=== PATIENT | male | born 1975 | race Caucasian/White ===

== ENCOUNTER 2024-08-19 00:08 | Emergency (ER) | payer OTHER, SELFPAY ==
[2024-08-19] VITALS (79 sets, daily range): BP systolic 33–224; BP diastolic 18–138; PULSE 0–169; RESP 0–64; TEMP 36.7; O2SAT 23–100
--- NOTE | ~2024-08-19 | XR_ITS ---
XR chest 1V portable Ordering provider: Kaitlynn Long MD History: 49 years Male with . cough . Comparison: April 05, 2011 FINDINGS: MEDIASTINUM: The cardiac silhouette is not enlarged. LUNGS: No effusions or pneumothorax. Prominent bronchovascular markings in the left lung base mediall y which may indicate atelectasis versus early pneumonia. Bilateral interstitial thickening suggestive of pneumonitis versus underlying fibrotic changes. OTHER: No free air under the diaphragm. IMPRESSION: Left basilar atelectasis versus pneumonia. Bilateral interstitial thickening suggestive of pneumoniti s. Pulmonary edema is less likely. Clinical correlation advised Reviewed, dictated and finalized at location A. IMPRESSION: Left basilar atelectasis versus pneumonia. Bilateral interstitial thickening hamilton ggestive of pneumonitis. Pulmonary edema is less likely. Clinical correlation a dvised
--- NOTE | ~2024-08-19 | XR_ITS ---
XR chest ET placement Ordering provider: Kaitlynn Long MD History: 49 years Male with . ET TUBE ADJUSTMENT . Comparison: August 19, 2024 FINDINGS: MEDIASTINUM: The cardiac silhouette is not enlarged. Endotracheal tube is seen about 7 cm above the c carmen. Nasogastric tube unchanged. LUNGS: No pneumothorax. Bilateral airspace disease seen more prominent in the lower lobes. Possibilit y of minimal effusion the left costophrenic angle is not excluded. OTHER: No free air under the diaphragm. IMPRESSION: Bilateral airspace disease suggestive of pneumonia and less likely pulmonary edema. Follow-up to reso lution advised. Reviewed, dictated and finalized at location A. IMPRESSION: Bilateral airspace disease suggestive of pneumonia and less likely pulmonary ed jenny. Follow-up to resolution advised.
--- NOTE | ~2024-08-19 | XR_ITS ---
XR chest ET placement Ordering provider: Kaitlynn Long MD History: 49 years Male with . ET TUBE PLACEMENT . Comparison: 08/19/2024 FINDINGS: MEDIASTINUM: The cardiac silhouette is slightly enlarged. Endotracheal tube is about 4 cm above the c carmen. Nasogastric tube is seen with the tip in the stomach. LUNGS: No pneumothorax. Bilateral airspace disease is seen suggestive of pulmonary edema versus pneum onia. OTHER: No free air under the diaphragm. IMPRESSION: Bilateral airspace disease suggestive of pneumonia versus pulmonary edema. Slight cardiomegaly. Reviewed, dictated and finalized at location A.
--- NOTE | ~2024-08-19 | CT_ITS ---
CT brain wo con Ordering provider: Kaitlynn Long History: 49 years Male with . unresponsiveness now resolved . Comparison: None. Technique: CT of the head without contrast. Radiation reduction technique utilized.The dose-length product was 1513.33 mGy-cm. FINDINGS: BRAIN PARENCHYMA AND CSF SPACES: No midline shift, mass effect or hemorrhage. The brain parenchyma a nd CSF spaces are otherwise normal. Paul Cisterna magnum. VISUALIZED PARANASAL SINUSES: Well aerated. MASTOIDS: Well aerated. BONES: The bones appear intact. SOFT TISSUES: Visualized nasopharynx is normal. Superficial soft tissues are normal. IMPRESSION: No acute intracranial findings. Reviewed, dictated and finalized at location A.
--- NOTE | ~2024-08-19 | XR_ITS ---
XR abdomen gastric tube insert Ordering provider: Kaitlynn Long MD History: . OG INSERT . Comparison: None. FINDINGS: BOWEL: Enteric tube is seen with the tip in the fundus of the stomach. Gas filled small bowel loops a re noted with slight dilatation. Obstruction versus ileus cannot be excluded. Follow-up advised. ORGANOMEGALY: None. SIGNIFICANT PATHOLOGIC CALCIFICATIONS: None. OTHER: No free air is seen under the diaphragm. IMPRESSION: Slightly dilated small bowel loops. Obstruction versus ileus cannot be excluded. Follow-up advised. Reviewed, dictated and finalized at location A. IMPRESSION: Slightly dilated small bowel loops. Obstruction versus ileus cannot be excluded . Follow-up advised.
--- NOTE | ~2024-08-19 | CT_ITS ---
CTA chest abdomen pelvis Ordering provider: Kaitlynn Long MD History: . period unresponsiveness . Comparison: None. Technique: CT angiogram chest, abdomen and pelvis was performed following timed intravenous injection of contrast. Thin slice axial images and reformatted coronal images were obtained. Three dimensional reformatted images of the chest were also obtained using a [employer] workstation. Radiation reduction t echnique utilized.The dose-length product was 1116.93 mGy-cm. 100 mL Omnipaque 350 was given IV. FINDINGS: CHEST: --THORACIC AORTA: normal . No aneurysm, dissection or mediastinal hematoma. Ascending aorta measures 3.6 cm. --GREAT VESSELS: Normal as visualized. --PULMONARY ARTERIES: No pulmonary embolus. --VISUALIZED THORACIC INLET: Normal. --MEDIASTINUM: Coronary arteries: Normal. Heart/other: The heart is not enlarged. Lymph nodes: No mediastinal or hilar adenopathy. Mildly prominent mediastinal and hilar lymph nodes. --LUNGS: No pulmonary nodules or masses. No pneumothorax. Interlobar septal thickening suggestive of fluid. Ex tensive patchy groundglass opacities suggestive of pulmonary edema versus pneumonia. Trace of right p leural effusion is possible. Thickening of the wall of the esophagus which. Slight thickening of the tracheal wall. --MUSCULOSKELETAL: Superficial soft tissues: The superficial soft tissues are normal. Bones: Age appropriate degenerative changes of the spine. ABDOMEN/PELVIS: --MUSCULOSKELETAL: Bones: Age appropriate degenerative changes of the spine. Superficial soft tissues: Bilateral Small inguinal fat containing hernia. Otherwise, The superficial soft tissues are normal. --UPPER ABDOMINAL ORGANS: Liver: Fat infiltration. Gallbladder: Normal. Spleen: Normal. Stomach/duodenum: Normal. Pancreas: Normal. Adrenals: Normal. Kidneys: Tiny cyst in the left kidney upper pole with calcification. --PELVIC ORGANS: . No bladder stones. Enlarged prostate. [place]idad catheter is seen in the urinary bladd er. Underdistended urinary bladder. Thickened wall of the urinary bladder is seen suggestive of cysti tis versus infiltrative process. Air seen in the urinary bladder most likely post catheterization. --BOWEL AND MESENTERY: Colon: No evidence of diverticulitis. Slightly prominent wall of the colon which may indicate colitis . Normal appendix. Small Bowel: Normal. No obstruction. Peritoneum/mesentery: No free air or free fluid. No mesenteric lymphadenopathy. --RETROPERITONEUM: No retroperitoneal lymphadenopathy. --ARTERIES: ABDOMINAL AORTA: Mild atheromatous disease. No aneurysm or dissection. RENAL ARTERIES: Mild atherosclerotic changes no significant stenosis. CELIAC AXIS: Normal. SMA: Normal. ARABELLA: Normal. ILIAC AND VISUALIZED FEMORAL ARTERIES: Normal. MESENTERIC ARTERIES: Normal. IMPRESSION: CHEST: 1. Bilateral pneumonia versus pulmonary edema. Atypical or viral pneumonia should be considered. 2. No evidence of aneurysm or dissection. No pulmonary embolism. ABDOMEN/PELVIS: 1. No evidence of aneurysm or dissection. 2. Slightly thickened wall of the colon which may indicate colitis. 3. Underfilled urinary bladder with thickened wall. Further evaluation advised. 4. Fat infiltration of the liver. Reviewed, dictated and finalized at location A. IMPRESSION: CHEST: 1. Bilateral pneumonia versus pulmonary edema. Atypical or viral pneumonia althea uld be considered. 2. No evidence of aneurysm or dissection. No pulmonary embolism. ABDOMEN/PELVIS: 1. No evidence of aneurysm or dissection. 2. Slightly thickened wall of the colon which may indicate colitis. 3. Underfilled urinary bladder with thickened wall. Further evaluation advised . 4. Fat infiltration of the liver.
--- NOTE | ~2024-08-19 | CT_ITS ---
CT cervical spine wo con Ordering provider: Kaitlynn Long MD History: . unresponsiveness now resolved . Comparison: None. Technique: CT of the cervical spine was performed without contrast. Sagittal and coronal reformatted images were also obtained and reviewed. Automated exposure control and iterative reconstruction grace hnique were employed. The dose-length product was 369.59 mGy-cm. 08/19/2024 FINDINGS: VERTEBRAE: No subluxation or acute fracture. The occipital condyles are intact. DISC SPACES: Narrowing of the disc C4-C5, C5-C6, and C6-C7. Multilevel facet joint disease. Multileve l uncovertebral joint osteoarthritic changes. Multilevel intervertebral foraminal narrowing. MRI is b andre for evaluation. PARASPINOUS SOFT TISSUES: Straightening of the spine suggestive of muscle spasm. Small erosive area s een in the ligamentum nuchae. IMPRESSION: No acute osseous abnormality cervical spine. Multilevel degenerative disc disease. Reviewed, dictated and finalized at location A.
--- NOTE | 2024-08-19 00:19 | ECG_ITS ---
Test Date: 2024-08-19 00:21:45 Measurements Intervals [place] Rate: 91 P: 34 PA: 164 QRS: 34 QRSD: 119 T: 101 QT: 400 QTc: 493 Interpretive Statements SINUS RHYTHM INCOMPLETE RIGHT BUNDLE BRANCH BLOCK ST DEVIATION AND T-WAVE ABNORMALITY, CONSIDER ISCHEMIA Electronically Signed On 08-19-2024 14:00:12 CDT by Tucker Lew D.O
--- NOTE | 2024-08-19 00:21 | ED.AMS ---
HPI - Altered Mental Status General Chief Complaint: Altered Mental Status Stated Complaint: period of unresponsiveness Time Seen by Provider: 08/19/24 00:15 Source: patient, family ( and son) and EMS Mode of arrival: EMS Limitations: no limitations History of Present Illness HPI narrative: Patient presents after report an episode the period of unresponsiveness. Son notes that he heard a gurgling sound and patient was found to be lying on the couch, appeared to be gasping for air with his eyes rolled back. Initially states that he fell as they moved him to the ground but they then clarifies that he did not fall but rather he slid as the eased him to the ground. He had been incontinent of bowel and bladder. Some denies any obvious seizure-like activity although he does state that his bilateral arms appeared slightly straightened and tense. EMS verbal reported Kussmaul respirations initially and that he was unresponsive however he did regain consciousness during transport and was alert oriented x4 at that time and that he said he drank 3 beers and a shot of fireball. Point care glucose 451 mg/dL. Vomited x1. Patient does report that he drinks too much. It is also reported that he has prediabetes. He states he has no complaints. He denies any chest pain, palpitations, headache, or any injury. He denies any edema. They do note that he has had a cough tonight. When pressed, he does state he feels short of breath and nauseated. He denies any recreational drugs, history of seizure, or history of heart failure. Related Data Allergies Allergy/AdvReac Type Severity Reaction Status Date / Time amoxicillin (From Augmentin) Allergy Unknown Unknown Verified 08/19/24 00:20 clavulanic acid (From Allergy Unknown Unknown Verified 08/19/24 00:20 Augmentin) Penicillins Allergy Unknown Unknown Verified 08/19/24 00:20 PMFSH Past Medical History Medical History Prediabetes Social History Social History Alcohol intake: current Alcohol use details: moderate/heavy Exam Narrative: GENERAL: well-nourished, and in no acute distress. HEAD: Normocephalic, atraumatic. EYES: Non injected, non icteric ENT: Nares clear, no rhinorrhea or epistaxis. NECK: Supple. CHEST: Speaking in full sentences. No respiratory distress. HEART: Regular rate and rhythm. . ABDOMEN: Soft, nondistended. EXTREMITIES: Normal range of motion. No lower extremity edema. SKIN: Warm, dry, no rash. Mild facial redness. NEURO: No focal deficits. Alert and oriented x3. Speaks clearly; mild slurring but easily understandable. Answering questions approrpiately and following commands. PSYCH: Normal mood and affect. Course Vital Signs Vital signs: Vital Signs Temperature 98.1 F 08/19/24 00:17 Pulse Rate 92 08/19/24 00:17 Respiratory Rate 22 H 08/19/24 00:17 Blood Pressure 86/70 L 08/19/24 00:17 Pulse Oximetry 84 L 08/19/24 00:17 Oxygen Delivery Room Air 08/19/24 00:17 Temperature 98.1 F 08/19/24 00:17 Pulse Rate 0 L 08/19/24 05:42 Respiratory Rate 26 H 08/19/24 05:42 Blood Pressure 51/20 L 08/19/24 05:42 Pulse Oximetry 23 L 08/19/24 05:38 Oxygen Delivery Mechanical Ventilation 08/19/24 03:00 Oxygen Flow Rate 15 08/19/24 01:04 Fraction of Inspired Oxygen 100 08/19/24 03:00 Procedures Intubation Intubation #1: Intubation Date: 08/19/24 Time out performed: Yes sedative: Etomidate Mg Given: 20 paralytic: Rocuronium Mg Given: 70 Laryngoscope: other (Linda 4, Linda 3, Ponce , and glide scope each used) Assist Device Used: fiber optic device Tube Size (cm): 7.5 Method of Intubation: orotracheal Number of Attempts: 4 Tube Placement Confirmation: visualized tube passing through cords, equal breath sounds bilaterally and confirmation by capnometry Additional Comments: Patient had voluminous secretions. Hypoxic throughout. Laryngoscopy at times performed while chest compressions being performed. His epiglottis appeared edematous and flat/floppy. Initially intubated using Mac and good capnography but difficult to appreciate breath sounds bilaterally and profused gastric secretions out of ETT concerning for possible esophageal placement so withdrawn and assisted with BVM ventilations. Attempted again using Ponce with same result -tube placed in color change on colorimetric device but with profuse gastric contents concerning for improper placement. Glidescope used for next attempt. Tube passed through vocal cords upon video screen. Good colorimetric response. Continues to have gastric contents but this is presumably from significant aspiration. SpO2 improving MDM - Altered Mental Status MDM Narrative Medical decision making narrative: Patient presents with report of a period of unresponsiveness during which he lost control of bowel and bladder. EMS note that he was initially unresponsive and with Kussmaul breathing. Blood glucose greater than 400 mg/dL. He did return to baseline mentation during transportation was able to give some history to EMS personnel which included alcohol consumption this evening. In the emergency department he is afebrile vital signs notable for hypotension, tachypnea, and with hypoxia although difficult to obtain waveform initially given cool/cold extremities. Placed on nasal cannula. Patient receiving 1L IV fluids initiated by EMS. Will hold on full 30cc/kg bolus as obtain more information. However, given flags for sepsis, will give broad spectrum antibiotics. Called to bedside just before 01:00. Patient's reports that he stated that he was not feeling well and that his vision was going. He started to vomit and subsequently was noted to hayder down to the 30s. He remained hypotensive. Patient assisted with ventilations via BVM. Narcan administered though pupils dilated; and POC glucose in the 300s. Patient's heart rate then improved to the 70s and 80s. Initial blood pressure obtained just thereafter shows a narrow pulse pressure. When it is retaken he has no hypertensive 202/108. Pupils remain bilaterally dilated and sluggishly responsive. Repeat EKG-show elevation AVR and upon reviewing initial EKG this also had shown elevation AVR. However, EKG obtained at 1:00 a[address] also shows diffuse ST depressions particularly in precordial leads V3 through V6. Posterior EKG is ordered and performed. Discussed patient with carry all driver Dr. Lew at approximately 01:15 and discussed extensively. He believes that patient might have multivessel disease with possible cardiomyopathy he given history however this not believe that this needs to be activated as a STEMI or STEMI equivalent. Posterior EKG is also reassuring. His SpO2 is stable, 99%. Patient has a lactic acid greater than 7. Questionable seizure versus infection/inflammation or other etiology. Troponin mildly elevated at 0.036. He had denied any chest pain. Potassium and magnesium are within normal limits. Ethanol 151. Elevated AST and ALT with no prior for comparison. He is hyperglycemic with an anion gap but no yrn acidosis on CMP. Beta hydroxybutyrate only mildly elevated. Pseudo hyponatremia as it corrects to 139-141 in the setting of hyperglycemia. TSH abnormal, T3 and T4 ordered. Glucosuria and proteinuria on urinalysis but no ketonuria. Patient's hemoglobin A1c is greater than 9% thus he does have diabetes and this is a new diagnosis. Trinidad inserted and temp sensing Trinidad placed. Patient was being transported back from CT scan when he went unresponsive. Immediately went to room and patient found to be pulseless at 02:18. CPR and ACLS initiated. See nursing documentation for exact times of interventions and medications administered. Intubated for airway protection and hypoxia as above. Placed on ventilator with FiO2 100%, TV 500, PEEP 5 initially. Patient's and son at bedside throughout code and resuscitation. A few episodes of ROSC but then with loss of pulses again at different intervals. Patient's requesting termination of compressions. At that pulse check, however, patient has regained a pulse. Saturations improved though tenuous. BP also initially elevated, 200s/100s with HR 150s-160s in the immediate post intubation period. Assisted extensively during and after resuscitation by hospitalist Dr Moore who has been able to review the resultant CT images in the interim.. Spoke with Stat Rad, particularly Devante Christina MD regarding the interpretation of CT head which was read is generally unremarkable. Did comment that patient has a degree of atrophy but not beyond the range of normal. She did note that he may have metacistern magna which can be a normal variant. She commented that the findings at the most superior aspect where there is hyperdensity are normal dural venous sinus findings. In regards to the questionably cystic structure seen most particularly on sagittal imaging. She notes that this likely represents partial volume averaging artifact. We did also discuss the findings on CT chest. Given patient will require MRI and particular a mechanical ventilator compliant MRI, will be unable to stay at [facility] and will require transfer. Patient's notes that he has not received care through any other hospital system previously. Admitted under physician Joseph Wilkes after discussing at 03:42 - 3:52 at [facility]. ICU bed pending, told possibly not until after 7am. Spoke with health screener Dr Anguiano at [facility] at approximately 04:45 who accepted patient. ICU. Pending bed. Thiamine ordered. Multiple and frequent reassessments of patient. Patient's hemodynamics have been tenuous with blood pressure initially elevated than normal and then becoming hypotensive again. Another 1L IV fluids administered (2nd in ED with 3rd total). Difficulties with maintaining oxygenation requiring a push dose of rocuronium and Versed for patient manipulation and venitlator management by Dr Moore who also places arterial line (see separate documentation). Peripheral pressors as Norepi initiated as per protocol but up titrated to 30. 2nd pressor ordered and then third. Dr Moore places Central line (see seprarate documentation). Called to bedside at 5:43 as patient was noted to go asystole on the monitor at 5:42. confirms she does not want compressions performed or any further invasive efforts. Pupils fixed and dilated. The mechanical ventilator turned off and patient has no spontaneous respirations or cardiac sounds on auscultation. Point of care ultrasound is performed and there is cardiac standstill. Patient pronounced at 5:46 a.m. and son present. PCP listed as below but Dr nAgulo had prescribed medications recently; the latter appears to be a primary care physician/family medicine doctor but was unable to confirm if this is patient's PCP before patient's left. [employer] called and arrived. Discussed case with them. ==== Critical Care: 1 or more vital organ systems impaired with a high probability of imminent or life-threatening deterioration in the patient's condition requiring frequent personal assessment and manipulation of the patient's condition. This included time spent evaluating the patient, speaking with EMS pre-hospital personnel and family, reviewing/interpreting laboratory/imaging studies, discussing the case with consultants or admitting teams, retrieving data and reviewing charts, monitoring for decompensation, documenting the visit, and performing bundled procedures exclusive of separately billed procedures. Differential Diagnosis Differential diagnosis: Likely alcoholic intoxication, altered mental status, delirium, hypoglycemia, hyponatremia, subarachnoid hemorrhage, sepsis and other (Seizure, infection (pneumonia, urinary tract infection); thyroid abnormalities; drug-induced) Lab Data Attestation: I reviewed the patient's lab results. Lab results narrative: Urine drug screen negative 08/19/24 00:34 08/19/24 00:34 Labs: Lab Results 08/19/24 08/19/24 08/19/24 Range/Units 00:34 00:58 01:25 WBC 8.0 (4.5-10.0) K/mm3 RBC 4.51 L (4.6-6.20) M/mm3 Hgb 14.6 (14.0-18.0) g/dL Hct 40.1 L (42.0-52.0) % MCV 88.9 (80-100) fl MCH 32.4 (26-34) pg MCHC 36.4 H (32-36) g/dl RDW 11.4 L (11.5-14.5) % Plt Count 222 (150-375) k/mm3 MPV 10.3 (7.4-10.4) fl Immature Gran % (Auto) 0.6 H (0-0.5) % Neut % (Auto) 55.2 (45.5-73.1) % Lymph % (Auto) 36.3 (18.3-44.2) % [place] % (Auto) 6.1 (2.6-8.5) % Eos % (Auto) 1.4 (0-4.4) % Baso % (Auto) 0.4 (0.2-1.2) % Lymph # (Auto) 2.90 (0.9-3.2) K/mm3 [place] # (Auto) 0.5 (0.1-0.6) K/mm3 Eos # (Auto) 0.1 (0-0.3) K/mm3 Baso # (Auto) 0.0 (0.0-0.1) K/mm3 Abs Immat Gran (auto) 0.05 H (0.00-0.031) K/mm3 Absolute Neuts (auto) 4.4 (1.3-6.7) K/mm3 Absolute Nucleated RBC 0.000 (0.0-0.012) K/mm3 Nucleated RBC % 0.0 (0.0-0.2) % PT 13.7 (11.1-14.7) Seconds INR 1.0 APTT 31.0 (22.3-36.8) Seconds Methemoglobin (0-1.5) %THb Minute Volume Vent Mode Tidal Volume ml PEEP cmH2O Peak Inspir Pressure Pressure Support Sodium 135 L (137-145) mmol/L Potassium 3.7 (3.4-5.0) mmol/L Chloride 94 L (98-107) mmol/L Carbon Dioxide 18 L (22-30) mmol/L Anion Gap 23 H (4-12) mmol/L BUN 28 H (9-20) mg/dL Creatinine 1.24 (0.7-1.3) mg/dL Estim Creat Clear Calc 66 ml/min Estimated GFR > 60 (59 - ) Glucose 353 H (65-110) mg/dL POC Capillary Glucose 317 H (65-105) mg/dl Hemoglobin A1c (<5.7) % Lactic Acid 7.1 H* (0.7-2.0) mmol/L Calcium 9.3 (8.4-10.2) mg/dL Phosphorus 6.5 H (2.5-4.5) mg/dL Magnesium 2.0 (1.6-2.3) mg/dL Total Bilirubin 0.8 (0.2-1.3) mg/dL AST 98 H (17-59) U/L ALT 124 H (6-50) U/L Alkaline Phosphatase 104 (38-126) U/L Ammonia < 9 L (9-30) umol/L Total Creatine Kinase 63 (55-170) U/L Troponin I 0.036 H* (0.000-0.034) ng/mL NT-Pro-B Natriuret Pep 378 H (19.9-100) pg/mL Total Protein 7.0 (6.3-8.2) g/dL Albumin 4.7 (3.5-5.1) g/dL Beta-Hydroxybutyrate/Acetoacetate 0.42 H (0.02-0.27) mmol/L Procalcitonin ng/mL TSH 7.150 H (0.465-4.680) uIU/mL Free T4 1.03 (0.78-2.19) ng/dL Free T3 pg/mL 3.14 (2.71-6.16) pg/mL Urine Color Yellow (Yellow) Urine Appearance Clear (Clear) Urine pH 5.0 (5.0-9.0) Ur Specific [place] 1.013 (1.001-1.035) Urine Protein 2+ H (Negative) mg/dL Urine Glucose (UA) 3+ H (Negative) mg/dL Urine Ketones Negative (Negative) mg/dL Ur Blood (Man) Non-hemolyzed trace (Negative) Urine Nitrate Negative (Negative) Urine Bilirubin Negative (Negative) Urine Urobilinogen 0.2 (<2.0) mg/dL Add Ur Microanalysis Reviewed Leukocyte Esterase Rfl Negative (Negative) PASCALE/UL Urine RBC 0-2 (0-2) /hpf Urine WBC 0-5 (0-3) /hpf Ur Squamous Epith Cells None seen (Few) /hpf Urine Bacteria None seen /hpf Urine Casts 3-5 Salicylates < 1.0 L (2-20) mg/dL Urine Opiates Screen Negative (Negative) Urine Methadone Screen Negative (Negative) Acetaminophen < 10 L (10-30) ug/mL Ur Barbiturates Screen Negative (Negative) Ur Phencyclidine Scrn Negative (Negative) Ur Amphetamine Screen Negative (Negative) U Benzodiazepines Scrn Negative (Negative) Urine Cocaine Screen Negative (Negative) U Cannabinoids Screen Negative (Negative) Ethyl Alcohol 151 (<10) mg/dL Influenza A (RT-PCR) Negative (Negative) Influenza B (RT-PCR) Negative (Negative) RSV (RT-PCR) Negative (Negative) SARS-CoV-2 RNA (RT-PCR) Negative (Negative) 08/19/24 08/19/24 08/19/24 Range/Units 01:45 03:42 04:26 WBC (4.5-10.0) K/mm3 RBC (4.6-6.20) M/mm3 Hgb (14.0-18.0) g/dL Hct (42.0-52.0) % MCV (80-100) fl MCH (26-34) pg MCHC (32-36) g/dl RDW (11.5-14.5) % Plt Count (150-375) k/mm3 MPV (7.4-10.4) fl Immature Gran % (Auto) (0-0.5) % Neut % (Auto) (45.5-73.1) % Lymph % (Auto) (18.3-44.2) % [place] % (Auto) (2.6-8.5) % Eos % (Auto) (0-4.4) % Baso % (Auto) (0.2-1.2) % Lymph # (Auto) (0.9-3.2) K/mm3 [place] # (Auto) (0.1-0.6) K/mm3 Eos # (Auto) (0-0.3) K/mm3 Baso # (Auto) (0.0-0.1) K/mm3 Abs Immat Gran (auto) (0.00-0.031) K/mm3 Absolute Neuts (auto) (1.3-6.7) K/mm3 Absolute Nucleated RBC (0.0-0.012) K/mm3 Nucleated RBC % (0.0-0.2) % PT (11.1-14.7) Seconds INR APTT (22.3-36.8) Seconds Methemoglobin 0.2 (0-1.5) %THb Minute Volume Not Reportable Not Reportable Vent Mode Cmv Cmv Tidal Volume 400 400 ml PEEP 15 15 cmH2O Peak Inspir Pressure Not Reportable Not Reportable Pressure Support Not Reportable Not Reportable Sodium (137-145) mmol/L Potassium (3.4-5.0) mmol/L Chloride (98-107) mmol/L Carbon Dioxide (22-30) mmol/L Anion Gap (4-12) mmol/L BUN (9-20) mg/dL Creatinine (0.7-1.3) mg/dL Estim Creat Clear Calc ml/min Estimated GFR (59 - ) Glucose (65-110) mg/dL POC Capillary Glucose (65-105) mg/dl Hemoglobin A1c 9.7 H (<5.7) % Lactic Acid (0.7-2.0) mmol/L Calcium (8.4-10.2) mg/dL Phosphorus (2.5-4.5) mg/dL Magnesium (1.6-2.3) mg/dL Total Bilirubin (0.2-1.3) mg/dL AST (17-59) U/L ALT (6-50) U/L Alkaline Phosphatase (38-126) U/L Ammonia (9-30) umol/L Total Creatine Kinase (55-170) U/L Troponin I (0.000-0.034) ng/mL NT-Pro-B Natriuret Pep (19.9-100) pg/mL Total Protein (6.3-8.2) g/dL Albumin (3.5-5.1) g/dL Beta-Hydroxybutyrate/Acetoacetate (0.02-0.27) mmol/L Procalcitonin 0.2 ng/mL TSH (0.465-4.680) uIU/mL Free T4 (0.78-2.19) ng/dL Free T3 pg/mL (2.71-6.16) pg/mL Urine Color (Yellow) Urine Appearance (Clear) Urine pH (5.0-9.0) Ur Specific [place] (1.001-1.035) Urine Protein (Negative) mg/dL Urine Glucose (UA) (Negative) mg/dL Urine Ketones (Negative) mg/dL Ur Blood (Man) (Negative) Urine Nitrate (Negative) Urine Bilirubin (Negative) Urine Urobilinogen (<2.0) mg/dL Add Ur Microanalysis Leukocyte Esterase Rfl (Negative) PASCALE/UL Urine RBC (0-2) /hpf Urine WBC (0-3) /hpf Ur Squamous Epith Cells (Few) /hpf Urine Bacteria /hpf Urine Casts Salicylates (2-20) mg/dL Urine Opiates Screen (Negative) Urine Methadone Screen (Negative) Acetaminophen (10-30) ug/mL Ur Barbiturates Screen (Negative) Ur Phencyclidine Scrn (Negative) Ur Amphetamine Screen (Negative) U Benzodiazepines Scrn (Negative) Urine Cocaine Screen (Negative) U Cannabinoids Screen (Negative) Ethyl Alcohol (<10) mg/dL Influenza A (RT-PCR) (Negative) Influenza B (RT-PCR) (Negative) RSV (RT-PCR) (Negative) SARS-CoV-2 RNA (RT-PCR) (Negative) ABG Data ABG results: 08/19/24 08/19/24 03:42 04:26 Puncture Site Right femoral [place] ABG pH 6.900 L* 6.844 L* ABG pCO2 66.3 H* 72.6 H* ABG pO2 59.4 L 63.5 L ABG PO2/FiO2 Ratio 0.59 0.63 ABG HCO3 12.7 L 12.2 L ABG O2 Saturation 69.7 L* 70.3 L* ABG O2 Content 17.2 17.0 ABG Base Excess -21.4 -23.0 A-a Gradient 587.3 576.9 Oxyhemoglobin 71.9 L* 74.8 L* Carboxyhemoglobin 0.6 Reduced Hemoglobin 24.4 H Total Hemoglobin 17.0 16.2 O2 Delivery Device Ventilator Ventilator O2 Liters/Min Not Reportable Not Reportable Vent Rate 20 20 FiO2 100 100 Attestation: I personally reviewed and interpreted this ABG as follows: Interpretation: Primary respiratory acidosis acute with secondary metabolic acidosis and additional metabolic alkalosis Imaging Data Attestation: I personally reviewed and interpreted this imaging study as follows: My impression: CXR: Cardiomegaly slight haziness on left but without focal consolidation or loss costophrenic angle CTA Chest on my independent interpretation: Extensive infiltrate and ground glass opacities, concerning for pneumonia including aspiration pneumonia CT Brain: Significant atrophy of cerebrum cerebellum on my independent interpretation. Also questionable cystic structure(s) Radiologist's impression: CT Stat Rad Head: No acute intracranial abnormality. No incidental findings. CTA chest stat rad: No definite pulmonary embolism identified. No at work aneurysm or dissection. Interlobular septal thickening is suggestive of fluid. Extensive patchy ground-glass opacities in densities, concerning for pulmonary edema. Infectious/inflammatory process is not excluded. Trace right pleural effusion. Mild bronchial wall thickening may be secondary to fluid versus bronchitis. Mild prominence of the esophageal wall may represent bronchitis. Incidental findings: Nonspecific mildly prominent mediastinal and hilar lymph nodes. CTA Abde Pelvis Stat Rad: Mild prominence of the bagley of the colon may be secondary to underdistention versus colitis. Prostatomegaly. Trinidad catheter in under distended bladder limits evaluation. Please correlate with urinalysis of concern for cystitis. Incidental findings: Normal appendix. Small fat containing bilateral inguinal hernias. No small-bowel obstruction. CT C-spine stat rad: No acute traumatic abnormality identified. Incidental findings: Straightening of the normal cervical lordosis. Degenerative changes of the spine. Small ossification in the nuchal ligament is likely related to remote trauma. XR CXR Stat Rad post procedure (intubation): Endotracheal tube terminates approximately 4.2 cm above clay. Enteric tube terminates in the region the proximal stomach. Extensive opacities throughout the lung may represent pulmonary edema versus infectious/inflammatory process. Borderline size of cardiac silhouette . XR Abd Stat Rad post procedure: Enteric tube terminates in the region the proximal stomach. Nonspecific mildly prominent gas-filled small bowel loops. This could represent obstruction or ileus. No incidental findings. ECG Data EKG #1: Attestation: I personally reviewed and interpreted this ECG as follows: ECG completion date: 08/19/24 ECG completion time: 00:21 Prior ECG tracings: not available for review (No prior EKG for comparison) Interpretation: Normal sinus rhythm at a rate of 91 beats per minute. NM interval 164. QRS 119. QT/QTC 400/449. Incomplete RBBB given QRS technically less [id number]; RSR' M-shaped pattern in V1-V3; slurred S wave in lateral leads (I, aVL, V5-6). Poor baseline quality limits full interpretation particularly in latter part of V2 as well as in V4 and V5 and V6 EKG #2: Attestation: I personally reviewed and interpreted this ECG as follows: ECG completion date: 08/19/24 ECG completion time: 01:00 Interpretation: Sinus tachycardia at a rate of 109 beats per minute. NM interval 178. QRS 118. QT/QTC 352/416. ST segment elevation in AVR. ST depressions are diffuse in V3 through V6 as well as inferior leads 2 and AVF and to a lesser degree lead 3. He has T-wave inversion in lead 2. EKG #3: Attestation: I personally reviewed and interpreted this ECG as follows: ECG completion date: 08/19/24 ECG completion time: 01:17 Interpretation: Normal sinus rhythm at a rate of 98 beats per minute. NM interval 198. QRS 97. QT/QTC 384/439. Elevation in AVR persists. T-waves are flat in was now V8 and V9. No T-wave inversions. Persistent ST depression in lead 2 and possibly avF but normal in lead 3. Critical Care Time Critical Care Time Critical Care Time: Yes Total Critical Care Time: 100 Discharge Plan Discharge Clinical Impression: Episode of unresponsiveness, Non-ST elevation CT (NSTEMI), Alcohol intoxication, ALT (SGPT) level raised, Elevated AST (SGOT), Pseudohyponatremia, Acidosis, lactic, Hyperglycemia due to diabetes mellitus, Newly diagnosed diabetes, Aspiration pneumonia, Cardiac arrest with successful resuscitation, Ground glass opacity present on imaging of lung, On mechanically assisted ventilation, Cardiac arrest Patient Disposition: Condition: Patient Language: Indonesian Follow-up/Referrals: AMISH Parker,Shelly Reyes MD [Non-Staff] - Time of Disposition: 05:46
[2024-08-19 00:50] LABS: Ethanol 151 mg/dL (<10)
[2024-08-19 00:56] LABS: Alanine Aminotransferase 124 U/L (6-50); Albumin Level 4.7 g/dL (3.5-5.1); Alkaline Phosphatase 104 U/L (38-126); Anion Gap 23 mmol/L (4-12); Aspartate Amino Transferase 98 U/L (17-59); Beta-Hydroxybutyrate/Acetoacetate 0.42 mmol/L (0.02-0.27); Bilirubin,Total 0.8 mg/dL (0.2-1.3); Blood Urea Nitrogen 28 mg/dL (9-20); Calcium 9.3 mg/dL (8.4-10.2); Carbon Dioxide 18 mmol/L (22-30); Chloride 94 mmol/L (98-107); Estimated CRCL calculation 66 ml/min; Estimated Glomerular Filt Rate > 60; Glucose 353 mg/dL (65-110); Potassium 3.7 mmol/L (3.4-5.0); Sodium 135 mmol/L (137-145)
--- OUTSIDE RECORDS SUMMARY | 2024-08-19 00:58 | XMS_ITS | Continuity of Care Document ---
Author Organization [facility] Address [address] [place] [address] Phone Care Team Providers Care Mortgage Loan Officer Originator Name Role Phone Darshana Hammond MD Unavailable Unavailable Allergies, Adverse Reactions, Alerts Substance Reaction Status Criticality POTASSIUM CLAVULANATE Active No Inf ormation AMOXICILLIN TRIHYDRATE Active No In formation Medications Medication Instructions Dosage Effective Dates (start - stop) Status Comments losartan 100 mg-hydrochlorothiaz nilton 25 mg tablet TAKE 1 TABLET BY MOUTH EVERY DAY - Active propranolol 20 mg tablet TAKE 1 TABLET BY MOUTH THREE TIMES DAILY - Active Effexor XR 150 mg capsule,extended release TAKE 1 CAPSULE BY MOUTH EVERY DAY - Active losartan 100 mg-hydrochlorothiaz nilton 25 mg tablet TAKE 1 TABLET BY MOUTH EVERY DAY - No Longer Active Procedures Procedure Date PERIODIC COMPREHENSIVE PREVENTIVE MED RE E/M; ESTABLISHED PATIENT; OFFICE/OUTPATIENT VISIT, EST PERIODIC COMPREHENSIVE PREVENTIVE MED RE E/M; ESTABLISHED PATIENT; OFFICE/OUTPATIENT VISIT, EST Urinalysis, Auto, w/o Scope 1ST COMPRE PREV MED E/M NEW PT Mar OFFICE/OUTPATIENT VISIT, EST Advance Directives Directive Yes / No Effective Date File Name No Information Encounters Encounter Description Practice Location Reason(s) For Visit Diagnoses Date Provider Providers [facility] [address], [place], [place], [id number] , tel: [phone] [facility] needs cologaurd test (chief complaint) Encounter for screening for malignant neoplasm of colon Stephany Gilliland. [address], [place], [place], [id number] , . tel: [phone] [facility], [address], [place], [place], [id number] , [place] tel: [phone] [facility] No Information Stephany Gilliland. [address], [place], [place], [id number] , [place]. tel: [phone] PERIODIC COMPREHENSIVE PREVENTIVE MED REE/M; ESTABLISHED PATIENT; [address] [facility], [address], [place], [place], [id number] , tel: [phone] T [facility] Preventive exam (chief complaint)h ypertension (chief complaint)a nxiety (chief complaint)t elevvisit (chief complaint) Essential (primary) hypertensionAnxiet yEncounter for general adult medical examination with abnormal findingsEncounter for screening for malignant neoplasm of colonEncounter for screening for malignant neoplasm of prostateCardiac murmur, unspecified 4 Stephany Gilliland. [address], [place], [place], [address] , [place]. tel: [phone] PERIODIC COMPREHENSIVE PREVENTIVE MED REE/M; ESTABLISHED PATIENT; [address] [facility], [address], [place], [place], [address] , [place] tel: [phone] [facility] Preventive exam (chief complaint)h ypertension (chief complaint)A nxiety (chief complaint) Body mass index (BMI) 26.0-26.9, adultEncounter for general adult medical examination with abnormal findingsEssential (primary) hypertensionAnxiet yCardiac murmur, unspecifiedNicotin e dependence 1 Stephany Gilliland. [address], [place], [place], [address] , [place]. tel: [phone] Referring Provider: Darshana Hammond, [address], [place], [address] . tel:[phone] 1ST COMPRE PREV MED E/M NEW PT [facility], [address], [place], [place], [address] , tel:[phone] [facility] Preventive exam (chief complaint)a nxiety (chief complaint)h ypertension (chief complaint)s mokes 1/2 pac since 21 year for (chief complaint)a lchol beer couple of times (chief complaint) Encounter for general adult medical examination with abnormal findingsEssential (primary) hypertensionAnxiet y disorder, unspecified 0 Stephany Gilliland. [address], [place], [place], [address] , . tel: [phone] Referring Provider: Darshana Hammond, [address], [place], [address] . tel:[phone] Family History Family Member Type Diagnosis Age At Onset Father Problem hypertension 72 Father Problem Alive and well Mother Problem Alive and well Payers Payer name Insurance type Covered alliance party ID Authoriza tion(s) No Information Social History Type Description Quantity Date Captured Comments Alcohol Use Details Unknown Caffeine Use Details Unknown Tobacco Use Status Smoking Status No Information Sex Male Sexual Orientation Straight or heterosexual Mar Gender Identity Male Chief Complaint And Reason For Visit From encounter dated '07/30/2024 11:50'. needs cologaurd test (chief complaint) Reason For Referral Reason For Referral No Information Plan Of Treatment Date Type Action Status Goal Tobacco cessation counseling completed Referral Referred To: [facility] Card Echo-Doppler/Stress 1 [facility]
[address] [place], [phone] Ordered: Referrals: Cardiology. [facility] Card Echo-Doppler/Stress. Location: [facility]. Diagnostic testing Appointment date/timeframe: 03/29/2024 ordered Future Order: Lab Order Faxed FI T-DNA (Cologuard) (OC301), Ordered on: Ordered Future Order: Lab Order FIT-DNA (Cologuard) (OC301), Collected on: , Sent on: Sent Future Order: Lab Order CBC (inc ludes Differential and Platelets) ([id number]), Scheduled for: Ordered Future Order: Lab Order Comprehe nsive Metabolic Panel ([id number]), Scheduled for: Ordered Future Order: Lab Order Lipid Pa barney ([id number]), Scheduled for: Ordered Future Order: Lab Order POC Hemo globin A1C (OC45), Scheduled for: Ordered Future Order: Lab Order POC Hemo globin A1C (OC45), Scheduled for: Ordered Future Order: Lab Order CBC (inc ludes Differential and Platelets) ([id number]), Scheduled for: Ordered Future Order: Lab Order Comprehe nsive Metabolic Panel ([id number]), Scheduled for: Ordered Future Order: Lab Order Lipid Pa barney (7600Q), Scheduled for: Ordered Future Order: Lab Order TSH with Reflex to Free T4 ([id number]), Scheduled for: Ordered Future Order: Lab Order Vitamin B12 (Cobalamin) (927Q), Scheduled for: Ordered Future Order: Lab Order CBC (inc ludes Differential and Platelets) ([id number]), Scheduled for: Ordered Future Order: Lab Order Comprehe nsive Metabolic Panel ([id number]), Scheduled for: Ordered Future Order: Lab Order Lipid Pa barney (7600Q), Scheduled for: Ordered Future Order: Lab Order TSH with Reflex to Free T4 ([id number]), Scheduled for: Ordered Future Order: Lab Order HIV-1/2 Antigen and Antibodies, Fourth Generation, with Reflexes ([id number]), Scheduled for: Ordered Future Order: Lab Order Hepatiti s C Antibody ([id number]), Scheduled for: Ordered Future Order: Lab Order RPR (Naomi gnosis) with Reflex to Titer and Confirmatory Testing ([id number]), Scheduled for: Ordered Future Order: Lab Order Urinalys is, Macroscopic (POC) (OC80), Scheduled for: Ordered Future Order: Lab Order Drug Michelle t, General Toxicology, Urine ([id number]), Scheduled for: Ordered Nutrition Recommendation Nutrition therap y completed History Of Present Illness Encounter Date Complaint History Of Prese nt Illness needs cologaurd test Preventive exam Men's preventive visit. Relevant history is positive for alcohol use. hypertension The HTN started in 2001. Risk factors include male gender. anxiety There is improve ment of initial symptoms. The client reports functioning as not difficult at all. The client denies any headache, nausea and vomiting. Additional information: On propranolol and venlafaxine. call The patient verb ally consented to visit.TELEHEALTH LOGISTICS:o Telemedicine by: Phone.o Telemedicine originating site: patient contacted by their listed cell or home phone numbers.o Telemedicine remote site: provider located at the [facility].o Source of patient information was: patient.o Time of encounter: start time:3.10pm to 3.30pM includes chart review and documentation Anxiety hypertension The HTN started in 2001. Risk factors include male gender. Preventive exam Men's preventive visit. Patient Health Questionnaire (PHQ-2) is negative. Relevant history is positive for tobacco use, alcohol use. smokes 1/2 pac since 21 year for alchol beer couple of times anxiety The first episod e occurred in 2000. The patient presents with anxious/fearful thoughts and compulsive thoughts. The patient denies any nausea and vomiting. 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 Preventive exam Men's preventive visit. Patient Health Questionnaire (PHQ-2) is negative. Relevant history is positive for tobacco use, alcohol use. hypertension The HTN started in 2001. Risk factors include male gender. Pertinent negatives include chest pain, claudication, irregular heartbeat/palpitations, nausea, tinnitus, visual disturbances and vomiting. Functional Status Date Functional Assessmen t No Information Instructions Date Instruction Additional Infor mation Patient will come to clinic fasting, for labs. 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 Exercise at least 1/2 hour 4 to 5 times a week Take medicines daily CHECK BP every 10 days and keep a log. GOAL <140/ <90COME TO SEE DOCTOR EVERY 4 to 6 months if it is WELL CONTROLLED.Please bring your medications with you to the next visit. Related to Essential (primary) hypertension Smoker. Adviced to s top smoking. If you continue to smoke there is an increased chances of cancer, shortness of breath, COPD .WE can help you with medication or nicotine patches if you like . Slowly cut back on smoking, this is very IMPORTANT for health! Related to Nicotine dependence worling from home Related to Anx iety Please take new medi cation as prescribed .along with your old medication Exercise 4 to 5 times a week at least half hour.CHECK BP every week and keep a log. GOAL <130/ 80.BRING YOUR BP READINGS come to clinic hypertensive follow up WITH nurse every 2 weeks until blood pressure is under control.BRING your medication to every visit. Related to Essential (primary) hypertension Prescribed activity/ exercise education Related to Body mass index [BMI] 26.0-26.9, adult anxiety continue add ed pronolol 10 mg po tid / continues effexor -Take medication everyday as prescribed-See a counselor who will help you (we have counselors at the clinic)-Yoga, meditation, and excercise will help to decrease symptoms of anxiety-caffeine makes anxiety worse, so cut down on amount of caffeinated beverages -if you smoke cigarettes, drink alcohol, use other illicit drugs, please stop as they make anxiety worse Related to Anxiety disorder, unspecified high white coat syndrome Related to Essential (primary) hypertension Assessments Type Assessment Date assessment Encounter for screening for reinaldo gnant neoplasm of colon Patient Care Teams Name Effective Dates (start - stop) Status Members No Information
[2024-08-19 00:59] LABS: Prothrombin Time 13.7 Seconds (11.1-14.7)
[2024-08-19 01:01] LABS: Creatine Kinase 63 U/L (55-170)
[2024-08-19] MEDS: NALOXONE HCL 0.4 MG/ML VIAL (01:01)
[2024-08-19 01:02] LABS: Acetaminophen < 10 ug/mL (10-30); Lactic Acid Reflex 7.1 mmol/L (0.7-2.0); Salicylate < 1.0 mg/dL (2-20)
[2024-08-19 01:05] LABS: Glucose Point of Care 317 mg/dl (65-105)
--- NOTE | 2024-08-19 01:09 | ECG_ITS ---
Test Date: 2024-08-19 01:00:42 Measurements Intervals [place] Rate: 109 P: 56 W[place]: 178 QRS: 18 QRSD: 118 T: 194 QT: 352 QTc: 475 Interpretive Statements SINUS TACHYCARDIA INDETERMINATE AXIS INTRAVENTRICULAR CONDUCTION DELAY ST DEVIATION AND CONSIDER ISCHEMIA Electronically Signed On 08-19-2024 14:00:39 CDT by Tucker Lew D.O
[2024-08-19 01:10] LABS: Troponin I 0.036 ng/mL (0.000-0.034)
[2024-08-19] MEDS: ONDANSETRON INJ 4 MG/2 ML VIAL IV PUSH (01:17)
[2024-08-19 01:18] LABS: Phosphorus 6.5 mg/dL (2.5-4.5)
[2024-08-19 01:25] LABS: Basophils Percent Auto 0.4 % (0.2-1.2); Eosinophils Absolute Auto 0.1 K/mm3 (0-0.3); Eosinophils Percent Auto 1.4 % (0-4.4); Hematocrit 40.1 % (42.0-52.0); Hemoglobin 14.6 g/dL (14.0-18.0); Immature Granulocyte Absolute 0.05 K/mm3 (0.00-0.031); Immature Granulocyte Percent A 0.6 % (0-0.5); Influenza A QL RT-PCR Negative (Negative); Influenza B QL RT-PCR Negative (Negative); Lymphocytes Percent Auto 36.3 % (18.3-44.2); Mean Corpuscular HGB Conc 36.4 g/dl (32-36); Mean Corpuscular Hemoglobin 32.4 pg (26-34); Mean Corpuscular Volume 88.9 fl (80-100); Mean Platelet Volume 10.3 fl (7.4-10.4); Monocytes Absolute Auto 0.5 K/mm3 (0.1-0.6); Monocytes Percent Auto 6.1 % (2.6-8.5); Neutrophils Absolute Auto 4.4 K/mm3 (1.3-6.7); Neutrophils Percent Auto 55.2 % (45.5-73.1); Platelet Count Result 222 k/mm3 (150-375); RSV RNA, RT-PCR Negative (Negative); Red Blood Count 4.51 M/mm3 (4.6-6.20); Red Cell Distribution Width 11.4 % (11.5-14.5); SARS-CoV-2 RNA PCR Negative (Negative)
--- NOTE | 2024-08-19 01:30 | PC.NURSE ---
Around 0100, hit call light for patient being nauseous and then vomiting, patient became unresponsive, oxygen saturation down to 50s, heart rate dropped to [address] Long at bedside with ED staff, patient hooked to crash cart.
[2024-08-19 01:42] LABS: Ammonia < 9 umol/L (9-30)
--- NOTE | 2024-08-19 01:43 | ECG_ITS ---
Test Date: 2024-08-19 01:17:38 Measurements Intervals [place] Rate: 98 P: 59 [place]: 198 QRS: 32 QRSD: 97 T: 93 QT: 384 QTc: 492 Interpretive Statements SINUS RHYTHM POSSIBLE ANTERIOR MYOCARDIAL INFARCTION , OF INDETERMINATE AGE T-WAVE ABNORMALITY, CONSIDER ISCHEMIA Electronically Signed On 08-19-2024 14:00:59 CDT by Tucker Lew D.O
[2024-08-19] MEDS: SODIUM CHLORIDE 0.9% IV 1,000 ML 999 ML IV CONT ×2 (01:46→05:29)
[2024-08-19 01:47] LABS: Add Urine Microscopic? YES; Appearance Urine Clear (Clear); Bacteria Urine None Seen /hpf; Bilirubin Urine Negative (Negative); Blood Urine Non-Hemolyzed Trace (Negative); Color Urine Yellow (Yellow); Glucose Urine UA 3+ mg/dL (Negative); Ketones Urine Negative (Negative); Leukocyte Esterase Ur Negative LEU/UL (Negative); Need Manual Microscopic Reviewed; Nitrate Urine Negative (Negative); Protein Urine 2+ mg/dL (Negative); RBC Urine 0-2 /hpf (0-2); Specific Grav Ur 1.013 (1.001-1.035); Squamous Epithelial Cell Urine None Seen /hpf (Few); Urobilinogen Urine 0.2 mg/dL (<2.0); WBC Urine 0-5 /hpf (0-3)
[2024-08-19 01:49] LABS: Amphetamine Screen Urine Negative (Negative); Barbiturate Screen Urine Negative (Negative); Benzodiazepines Screen Urine Negative (Negative); Cannabinoid Screen Urine Negative (Negative); Cocaine Screen Urine Negative (Negative); Methadone Screen Urine Negative (Negative); Opiate Screen Urine Negative (Negative); Phencyclidine Screen Urine Negative (Negative)
[2024-08-19] MEDS: CEFEPIME 1 GM/NS 50 ML 1 GM/50 ML BAG IVPB (01:50)
[2024-08-19 02:00] LABS: Hemoglobin A1C 9.7 % (<5.7)
[2024-08-19 02:20] LABS: Procalcitonin 0.2 ng/mL
[2024-08-19 02:26] LABS: NT Pro B Type Natriuretic Pept 378 pg/mL (19.9-100)
[2024-08-19] MEDS: RAPID SEQUENCE INTUBATION KIT 1 EACH (02:27)
[2024-08-19 02:34] LABS: Free T3 3.14 pg/mL (2.71-6.16); Free T4 Free Thyroxine 1.03 ng/dL (0.78-2.19)
[2024-08-19 02:39] LABS: Reflex Lactic Acid Yes or No Add Lactic
[2024-08-19] MEDS: MIDAZOLAM HCL (*CRX) 2 MG/2 ML VIAL 4 MG IV PUSH (03:40)
[2024-08-19] MEDS: ROCURONIUM BROMIDE 50 MG/5 ML VIAL IV PUSH (03:40)
[2024-08-19] MEDS: NOREPINEPHRINE 8 MG/D5W 250 ML 8 MG/250 ML BAG 9.38 MG IV CONT (03:52)
[2024-08-19 04:01] LABS: Alveolar/Arterial O2 Gradient 587.3 mmHg; Base Excess ABG -21.4 mEq/l (+/-2.0); Fractional Inspired Oxygen 100 %; HCO3 ABG 12.7 mEq/l (22.0-26.0); Oxygen Content ABG 17.2 %vol (16.0-22.0); PO2 ABG 59.4 mmHg (80.0-100.0); PO2 FiO2 Ratio Arterial Blood 0.59 %
[2024-08-19 04:04] LABS: Oxygen Saturation ABG 69.7 % (95.0-100.0); Oxyhemoglobin 71.9 % THb (90.0-100.0); PCO2 ABG 66.3 mmHg (35.0-45.0)
[2024-08-19 04:05] LABS: Device VENTILATOR; Modified Allen's Test Pass; Site Drawn RIGHT FEMORAL
[2024-08-19 04:06] LABS: Arterial Blood Gas PEEP 15 cmH2O; Arterial Blood Gas Tidal Volume 400 ml; Arterial Blood Gas Vent Mode CMV; Arterial Blood Gas Ventilator rate 20 /MIN
[2024-08-19 04:27] LABS: Alveolar/Arterial O2 Gradient 576.9 mmHg; Carboxyhemoglobin 0.6 % THb (0-2.0); Fractional Inspired Oxygen 100 %; HCO3 ABG 12.2 mEq/l (22.0-26.0); Methemoglobin ABG 0.2 %THb (0-1.5); PO2 ABG 63.5 mmHg (80.0-100.0); PO2 FiO2 Ratio Arterial Blood 0.63 %; Reduced Hemoglobin 24.4 %THb (0-5.0); Total Hemoglobin 16.2 g/dL (12.0-18.0)
[2024-08-19 04:30] LABS: pH ABG 6.844 (7.350-7.450)
[2024-08-19 04:31] LABS: Device VENTILATOR; Oxygen Saturation ABG 70.3 % (95.0-100.0); Oxyhemoglobin 74.8 % THb (90.0-100.0); PCO2 ABG 72.6 mmHg (35.0-45.0); Site Drawn ARTLINE
[2024-08-19 04:32] LABS: Arterial Blood Gas PEEP 15 cmH2O; Arterial Blood Gas Tidal Volume 400 ml; Arterial Blood Gas Vent Mode CMV; Arterial Blood Gas Ventilator rate 20 /MIN
--- NOTE | 2024-08-19 04:55 | WPDPROCEDUR ---
Procedures Arterial Line Arterial Line Date: 08/19/24 Arterial Line Time: 03:30 Patient/family/POA and/or understands and acknowledges the need to proceed with the arterial catheter insertion as an important element of the patient's clinical management.: Yes Perfomed Emergently - Given emergent patient conditions, temporal constraints may have precluded informed consent: Yes Time Out Performed: Yes Patient Position: other (SITTING) Site: right Site Prep: chlorhexidine Skin Anesthesia: none Technique used: ultrasound-guided Size (Gauge): 20 Length: 12 cm Closure/Dressing: suture and transparent dressing Additional comments: The procedure was performed emergently sterile technique was not maintained due to the patient's critical and unstable condition.
[2024-08-19] MEDS: SODIUM BICARBONATE 8.4% 50 MEQ/50 ML SYRINGE IV PUSH ×2 (04:59→05:10)
--- NOTE | 2024-08-19 04:59 | PM.IMCN ---
Assessment and Plan Assessment and plan (1) Witnessed seizure-like activity: Code(s): R56.9 - Unspecified convulsions Status: Acute (2) Cardiac arrest with successful resuscitation: Code(s): I46.9 - Cardiac arrest, cause unspecified Status: Acute (3) ARDS (adult respiratory distress syndrome): Code(s): J80 - Acute respiratory distress syndrome Status: Acute (4) Acute respiratory failure with hypoxia and hypercapnia: Code(s): J96.01 - Acute respiratory failure with hypoxia; J96.02 - Acute respiratory failure with hypercapnia Status: Acute (5) Shock: Code(s): R57.9 - Shock, unspecified Status: Acute (6) Aspiration pneumonia: Qualifiers: Aspiration pneumonia type: due to vomit Laterality: bilateral Lung location: unspecified part of lung Qualified Code(s): J69.0 - Pneumonitis due to inhalation of food and vomit Code(s): J69.0 - Pneumonitis due to inhalation of food and vomit Status: Acute (7) Alcohol intoxication: Qualifiers: Complication of substance-induced condition: with unspecified complication Qualified Code(s): F10.929 - Alcohol use, unspecified with intoxication, unspecified Code(s): F10.929 - Alcohol use, unspecified with intoxication, unspecified Status: Acute (8) Transaminitis: Code(s): R74.01 - Elevation of levels of liver transaminase levels Status: Acute (9) Type 2 diabetes mellitus with hyperglycemia, without long-term current use of insulin: Code(s): E11.65 - Type 2 diabetes mellitus with hyperglycemia Status: Acute Plan Patient presented with seizure and likely aspiration pneumonia. As clinical condition progressed the patient request developed acute hypoxic hypercapnic respiratory failure requiring intubation with difficulty with ventilation suggestive of ARDS pathology. If patient's and then developed shock requiring vasopressors and arterial line placement. Patient did have some transaminitis on labs but imaging demonstrated hepatic steatosis in a history of alcoholism no evidence of overt or acute liver failure. The patient marked lactic acidosis likely due to a combination of witnessed seizure and sepsis/shock. Patient received appropriate broad-spectrum antibiotic therapy in the ER and fluid resuscitation. I provided additional fluid resuscitation and pressor therapy with Levophed dopamine and vasopressin. Bicarb administration was given to try to balance out patient's acidosis. Patient was still difficult to ventilate despite high ventilator settings. Despite maximum efforts patient's clinical condition continued to deteriorate in the patient ultimately in the ER. Patient was pronounced by the ER provider. 125 minutes was spent in critical care activities. Due to a high probability of clinically significant, life threatening deterioration, the patient required my highest level of preparedness to intervene emergently and I personally spent this critical care time directly and personally managing the patient. This critical care time included obtaining a history; examining the patient; pulse oximetry; ordering and review of studies; arranging urgent treatment with development of a management plan; evaluation of patient's response to treatment; frequent reassessment; and discussions with other providers. It was exclusive of separately billable procedures and treating other patients and teaching time. Please see Assessment and Plan section and the rest of the note for further information on patient assessment and treatment. Thank you for the upper she of consultation. HPI Date of Consult Consult date: 08/19/24 Requesting Physician: Dr. Long Primary Care Provider: UNKNOWN,DOCTOR Consult Narrative Narrative: Sebastian Wells is a 49 year old male with a past medical history of anxiety (self-medicated with alcohol), essential hypertension, untreated type 2 diabetes mellitus and alcoholism who presented to the ER with seizure. I went down to the ER to assist. Patient had respiratory failure and was intubated by ER provider. Patient had large amounts of gastric contents suctioned from his ET tube. He had so much gastric contents in his lungs that the patient's ET tube was replaced multiple times to ensure appropriate placement. Patient had cardiopulmonary arrest and had CPR. At the time that I arrived at the bedside they just obtained. The initial review of the patient's CT of the head was suspicious for possible acute process. Both I and the ER physician discussed patient's clinical condition with the at bedside who did happens to also be a healthcare provider/[employer]. At that time the stated that she would not want the patient to have further CPR if his heart were to stop again. The patient's CT scan of the chest demonstrated marked large infiltrates consistent with aspiration given the patient's clinical picture. While he ER provider went to arrange transfer I attempted assist with ventilator management as patient was not maintaining oxygen saturations. Ventilator adjustments were made and patient placed on a PEEP of 1500% FiO2 and tidal volume between 404 50 and his rate on his been was increased 20. I ended up obtaining a ABG has staff but having difficulty obtaining specimen and patient still had marked combined metabolic and respiratory acidosis with marked hypoxia. Been L dose meds were made again with increasing rate 26 and tidal volume to 450. Patient was alarming high peak pressures in still only pulling tidal volumes of 350 at the best. Repeat chest x-ray was performed ET tube placement was again confirmed but patient had worsening infiltrates. The patient was given rocuronium and Versed which seemed to briefly help with oxygenation but still did not help with ventilation. Patient remained unresponsive with no pupillary reflex the. In a ended up placing a arterial line for more accurate blood pressure monitoring his the patient's blood pressure is acutely decompensated while I was obtaining an ABG. Art line confirmed patient is hypotensive state. I recommended Levophed be ordered. The patient received an additional L fluid bolus. Throughout the course of resuscitation eventually patient's Levophed was maxed out and pills vasopressin and dopamine were ordered. The patient did not have central line access and peripheral access was limited. Subsequently had placed a left femoral CVC. Unfortunately for nursing staff could get the pressors switched over to the central line the patient went bradycardic and went into asystole. Patient was shortly thereafter pronounced by the ER physician. A personally will approximately 2 hours at the patient's bedside in discussion with the patient's family, ER providers, nursing staff making ventilator adjustments and providing critical care management working in tandem with the ER provider to try to get the patient transferred. The patient around the time that beds had become available at the tertiary care facility. The patient markedly hypoxic despite maximum mom ventilator settings and had remained hypotensive despite multiple pressor therapies bicarb administration and adequate volume resuscitation. Bedside ultrasound was visualized which demonstrated almost come bleed collapse of IJ. Review of Systems Review of Systems: ROS unobtainable: Yes unobtainable due to endotracheal tube PMFSH Past Medical History Medical History (Updated 08/19/24 @ 22:05 by Danette Moore DO) Essential hypertension Anxiety Type 2 diabetes mellitus Alcoholism Surgical History Surgical History (Updated 08/19/24 @ 21:58 by Danette Moore DO) No significant past surgical history Family History Family History (Updated 08/19/24 @ 22:00 by Danette Moore DO) Other Diabetes mellitus Hypertension Social History Social History (Updated 08/19/24 @ 22:01 by MAINOR Montano Social History: Patient is . He has routine moderate to heavy alcohol use. His reports that he has smoked about 1 pack of cigarettes per day but quit smoking in 2023. Smoking packs per day: 1 Smoking cigarettes per day: 20.0 Years smoked: 30 Smoking pack-years: 30.00 Smoking status: Former smoker Alcohol intake: current Alcohol use details: moderate/heavy Meds Home Medications and Allergies Allergies Allergy/AdvReac Type Severity Reaction Status Date / Time amoxicillin (From Augmentin) Allergy Unknown Unknown Verified 08/19/24 00:20 clavulanic acid (From Allergy Unknown Unknown Verified 08/19/24 00:20 Augmentin) Penicillins Allergy Unknown Unknown Verified 08/19/24 00:20 Vital Signs Vital Signs - 24 hr 08/19/24 00:17 08/19/24 00:18 08/19/24 00:40 Temperature 98.1 F Pulse Rate 92 93 Respiratory Rate 22 H 18 Blood Pressure 86/70 L 86/70 L Pulse Oximetry 84 L 82 L 93 Oxygen Delivery Room Air Nasal Cannula Oxygen Flow Rate 4 08/19/24 00:59 08/19/24 01:01 08/19/24 01:04 Temperature Pulse Rate 110 H 105 H Respiratory Rate 38 H 24 H Blood Pressure 87/75 L 202/108 H Pulse Oximetry 100 94 93 Oxygen Delivery Non-Rebreather Mask Oxygen Flow Rate 15 08/19/24 01:17 08/19/24 01:19 08/19/24 01:30 Temperature Pulse Rate 98 98 97 Respiratory Rate 30 H 25 H 24 H Blood Pressure 115/80 100/77 Pulse Oximetry 95 92 100 Oxygen Delivery Oxygen Flow Rate 08/19/24 01:39 08/19/24 01:50 08/19/24 02:19 Temperature Pulse Rate 96 91 123 H Respiratory Rate 23 H 28 H 15 Blood Pressure Pulse Oximetry 92 99 Oxygen Delivery Oxygen Flow Rate 08/19/24 02:24 08/19/24 02:27 08/19/24 02:30 Temperature Pulse Rate 105 H 151 H 135 H Respiratory Rate 22 H 23 H 5 L Blood Pressure 33/18 L 224/137 H Pulse Oximetry 42 L 65 L Oxygen Delivery Oxygen Flow Rate 08/19/24 02:32 08/19/24 02:45 08/19/24 02:46 Temperature Pulse Rate 0 L 88 Respiratory Rate 13 38 H 64 H Blood Pressure 61/38 L Pulse Oximetry 74 L 63 L Oxygen Delivery Oxygen Flow Rate 08/19/24 02:50 08/19/24 02:54 08/19/24 02:56 Temperature Pulse Rate 169 H 162 H 157 H Respiratory Rate 18 15 21 H Blood Pressure 169/118 H 218/138 H 208/135 H Pulse Oximetry 86 L 90 Oxygen Delivery Oxygen Flow Rate 08/19/24 03:00 08/19/24 03:01 08/19/24 03:02 Temperature Pulse Rate 147 H 143 H 142 H Respiratory Rate 19 Blood Pressure 213/137 H 222/138 H Pulse Oximetry 87 L 87 L 87 L Oxygen Delivery Oxygen Flow Rate 08/19/24 03:04 08/19/24 03:06 08/19/24 03:09 Temperature Pulse Rate 139 H 139 H 132 H Respiratory Rate 21 H 18 12 Blood Pressure 224/135 H 213/137 H 210/132 H Pulse Oximetry 87 L 84 L 86 L Oxygen Delivery Oxygen Flow Rate 08/19/24 03:11 08/19/24 03:14 08/19/24 03:15 Temperature Pulse Rate 128 H 124 H 123 H Respiratory Rate 23 H 30 H 32 H Blood Pressure 210/135 H 208/128 H Pulse Oximetry 89 L 84 L 82 L Oxygen Delivery Oxygen Flow Rate 08/19/24 03:16 08/19/24 03:24 08/19/24 03:26 Temperature Pulse Rate 122 H 117 H 118 H Respiratory Rate 35 H 0 L 22 H Blood Pressure 196/121 H 209/130 H 218/123 H Pulse Oximetry 80 L 89 L 70 L Oxygen Delivery Oxygen Flow Rate 08/19/24 03:29 08/19/24 03:30 08/19/24 03:31 Temperature Pulse Rate 122 H 122 H 122 H Respiratory Rate 21 H 21 H 16 Blood Pressure 189/122 H 164/120 H Pulse Oximetry 78 L 82 L 85 L Oxygen Delivery Oxygen Flow Rate 08/19/24 03:33 08/19/24 03:36 08/19/24 03:38 Temperature Pulse Rate 120 H 113 H 111 H Respiratory Rate 18 20 20 Blood Pressure 127/103 H 97/85 L 92/81 L Pulse Oximetry 85 L 89 L 90 Oxygen Delivery Oxygen Flow Rate 08/19/24 03:39 08/19/24 03:41 08/19/24 03:52 Temperature Pulse Rate 110 H 108 H 76 Respiratory Rate 20 20 Blood Pressure 89/77 L 65/50 L Pulse Oximetry 89 L 81 L Oxygen Delivery Oxygen Flow Rate 08/19/24 04:10 08/19/24 04:13 08/19/24 04:14 Temperature Pulse Rate 107 H 113 H 115 H Respiratory Rate 20 20 Blood Pressure 104/83 Pulse Oximetry 88 L 84 L Oxygen Delivery Oxygen Flow Rate 08/19/24 04:15 08/19/24 04:16 08/19/24 04:18 Temperature Pulse Rate 116 H 116 H 118 H Respiratory Rate 20 20 20 Blood Pressure 107/81 108/83 Pulse Oximetry 81 L 79 L 78 L Oxygen Delivery Oxygen Flow Rate 08/19/24 04:21 08/19/24 04:23 08/19/24 04:26 Temperature Pulse Rate 117 H 118 H 117 H Respiratory Rate 20 20 20 Blood Pressure 107/81 110/82 108/78 Pulse Oximetry 79 L 78 L 77 L Oxygen Delivery Oxygen Flow Rate 08/19/24 04:30 08/19/24 04:31 08/19/24 04:33 Temperature Pulse Rate 122 H 121 H 116 H Respiratory Rate 26 H 22 H 26 H Blood Pressure 99/76 L 96/75 L Pulse Oximetry 79 L 81 L 76 L Oxygen Delivery Oxygen Flow Rate 08/19/24 04:36 08/19/24 04:58 Temperature Pulse Rate 118 H 114 H Respiratory Rate 26 H Blood Pressure 88/65 L 84/71 L Pulse Oximetry 64 L Oxygen Delivery Oxygen Flow Rate Exam Narrative: Estimated weight was 83 kg actual weight unknown height 5 ft 10 Const: Other: Acutely ill-appearing, intubated, OG present, overweight/obese HENMT: Other: Head is normocephalic atraumatic, mucous membranes are dry, dried emesis noted to the side to the mouth and chin Eyes: Other: Pupils are equal, dilated, not reactive, corneal reflexes absent Neck: Other: Large neck circumference, no JVD Resp: Other: Rhonchi bilateral throughout, patient is not over breathing the vent, equal breath sounds Cardio: Other: Tachycardic, no obvious murmur, no JVD GI: Other: Markedly distended, tense, hypoactive bowel sounds : Other: [place] catheter in place with a small amount dark yellow urine Skin: Other: Cold to touch, mottled, cyanotic fingers and toes Extrem: Other: No gag, no pupillary reflex, pupils are fixed and dilated, no withdrawal to painful stimuli Psych: Other: Disheveled Results Labs 08/19/24 00:34 08/19/24 00:34 Labs: Short CBC 08/19/24 Range/Units 00:34 WBC 8.0 (4.5-10.0) K/mm3 Hgb 14.6 (14.0-18.0) g/dL Hct 40.1 L (42.0-52.0) % Plt Count 222 (150-375) k/mm3 [facility] 08/19/24 00:34 Sodium 135 L Potassium 3.7 Chloride 94 L Carbon Dioxide 18 L BUN 28 H Creatinine 1.24 Glucose 353 H Calcium 9.3 Cardiac Enzymes 08/19/24 Range/Units 00:34 Total Creatine Kinase 63 (55-170) U/L Troponin I 0.036 H* (0.000-0.034) ng/mL Liver Function 08/19/24 Range/Units 00:34 Total Bilirubin 0.8 (0.2-1.3) mg/dL AST 98 H (17-59) U/L ALT 124 H (6-50) U/L Alkaline Phosphatase 104 (38-126) U/L Albumin 4.7 (3.5-5.1) g/dL Urine 08/19/24 Range/Units 01:25 Urine Color Yellow (Yellow) Urine Appearance Clear (Clear) Urine pH 5.0 (5.0-9.0) Ur Specific [place] 1.013 (1.001-1.035) Urine Protein 2+ H (Negative) mg/dL Urine Glucose (UA) 3+ H (Negative) mg/dL Laboratory Tests 08/19/24 08/19/24 08/19/24 00:34 00:58 01:25 WBC 8.0 RBC 4.51 L Hgb 14.6 Hct 40.1 L MCV 88.9 MCH 32.4 MCHC 36.4 H RDW 11.4 L Plt Count 222 MPV 10.3 Immature Gran % (Auto) 0.6 H Neut % (Auto) 55.2 Lymph % (Auto) 36.3 [place] % (Auto) 6.1 Eos % (Auto) 1.4 Baso % (Auto) 0.4 Lymph # (Auto) 2.90 [place] # (Auto) 0.5 Eos # (Auto) 0.1 Baso # (Auto) 0.0 Abs Immat Gran (auto) 0.05 H Absolute Neuts (auto) 4.4 Absolute Nucleated RBC 0.000 Nucleated RBC % 0.0 PT 13.7 INR 1.0 APTT 31.0 Puncture Site ABG pH ABG pCO2 ABG pO2 ABG PO2/FiO2 Ratio ABG HCO3 ABG O2 Saturation ABG O2 Content ABG Base Excess A-a Gradient Oxyhemoglobin Carboxyhemoglobin Methemoglobin Reduced Hemoglobin Total Hemoglobin O2 Delivery Device O2 Liters/Min Minute Volume Vent Rate Vent Mode FiO2 Tidal Volume PEEP Peak Inspir Pressure Pressure Support Sodium 135 L Potassium 3.7 Chloride 94 L Carbon Dioxide 18 L Anion Gap 23 H BUN 28 H Creatinine 1.24 Estim Creat Clear Calc 66 Estimated GFR > 60 Glucose 353 H POC Capillary Glucose 317 H Hemoglobin A1c Lactic Acid 7.1 H* Calcium 9.3 Phosphorus 6.5 H Magnesium 2.0 Total Bilirubin 0.8 AST 98 H ALT 124 H Alkaline Phosphatase 104 Ammonia < 9 L Total Creatine Kinase 63 Troponin I 0.036 H* NT-Pro-B Natriuret Pep 378 H Total Protein 7.0 Albumin 4.7 Beta-Hydroxybutyrate/Acetoacetate 0.42 H Procalcitonin TSH 7.150 H Free T4 1.03 Free T3 pg/mL 3.14 Urine Color Yellow Urine Appearance Clear Urine pH 5.0 Ur Specific [place] 1.013 Urine Protein 2+ H Urine Glucose (UA) 3+ H Urine Ketones Negative Ur Blood (Man) Non-hemolyzed trace Urine Nitrate Negative Urine Bilirubin Negative Urine Urobilinogen 0.2 Add Ur Microanalysis Reviewed Leukocyte Esterase Rfl Negative Urine RBC 0-2 Urine WBC 0-5 Ur Squamous Epith Cells None seen Urine Bacteria None seen Urine Casts 3-5 Salicylates < 1.0 L Urine Opiates Screen Negative Urine Methadone Screen Negative Acetaminophen < 10 L Ur Barbiturates Screen Negative Ur Phencyclidine Scrn Negative Ur Amphetamine Screen Negative U Benzodiazepines Scrn Negative Urine Cocaine Screen Negative U Cannabinoids Screen Negative Ethyl Alcohol 151 Influenza A (RT-PCR) Negative Influenza B (RT-PCR) Negative RSV (RT-PCR) Negative SARS-CoV-2 RNA (RT-PCR) Negative 08/19/24 08/19/24 08/19/24 01:45 03:42 04:26 WBC RBC Hgb Hct MCV MCH MCHC RDW Plt Count MPV Immature Gran % (Auto) Neut % (Auto) Lymph % (Auto) [place] % (Auto) Eos % (Auto) Baso % (Auto) Lymph # (Auto) [place] # (Auto) Eos # (Auto) Baso # (Auto) Abs Immat Gran (auto) Absolute Neuts (auto) Absolute Nucleated RBC Nucleated RBC % PT INR APTT Puncture Site Right femoral Artline ABG pH 6.900 L* 6.844 L* ABG pCO2 66.3 H* 72.6 H* ABG pO2 59.4 L 63.5 L ABG PO2/FiO2 Ratio 0.59 0.63 ABG HCO3 12.7 L 12.2 L ABG O2 Saturation 69.7 L* 70.3 L* ABG O2 Content 17.2 17.0 ABG Base Excess -21.4 -23.0 A-a Gradient 587.3 576.9 Oxyhemoglobin 71.9 L* 74.8 L* Carboxyhemoglobin 0.6 Methemoglobin 0.2 Reduced Hemoglobin 24.4 H Total Hemoglobin 17.0 16.2 O2 Delivery Device Ventilator Ventilator O2 Liters/Min Not Reportable Not Reportable Minute Volume Not Reportable Not Reportable Vent Rate 20 20 Vent Mode Cmv Cmv FiO2 100 100 Tidal Volume 400 400 PEEP 15 15 Peak Inspir Pressure Not Reportable Not Reportable Pressure Support Not Reportable Not Reportable Sodium Potassium Chloride Carbon Dioxide Anion Gap BUN Creatinine Estim Creat Clear Calc Estimated GFR Glucose POC Capillary Glucose Hemoglobin A1c 9.7 H Lactic Acid Calcium Phosphorus Magnesium Total Bilirubin AST ALT Alkaline Phosphatase Ammonia Total Creatine Kinase Troponin I NT-Pro-B Natriuret Pep Total Protein Albumin Beta-Hydroxybutyrate/Acetoacetate Procalcitonin 0.2 TSH Free T4 Free T3 pg/mL Urine Color Urine Appearance Urine pH Ur Specific [place] Urine Protein Urine Glucose (UA) Urine Ketones Ur Blood (Man) Urine Nitrate Urine Bilirubin Urine Urobilinogen Add Ur Microanalysis Leukocyte Esterase Rfl Urine RBC Urine WBC Ur Squamous Epith Cells Urine Bacteria Urine Casts Salicylates Urine Opiates Screen Urine Methadone Screen Acetaminophen Ur Barbiturates Screen Ur Phencyclidine Scrn Ur Amphetamine Screen U Benzodiazepines Scrn Urine Cocaine Screen U Cannabinoids Screen Ethyl Alcohol Influenza A (RT-PCR) Influenza B (RT-PCR) RSV (RT-PCR) SARS-CoV-2 RNA (RT-PCR) Impressions Chest X-Ray 08/19/24 06:14 IMPRESSION: Left basilar atelectasis versus pneumonia. Bilateral interstitial thickening suggestive of pneumonitis. Pulmonary edema is less likely. Clinical correlation advised Chest X-Ray 08/19/24 06:19 IMPRESSION: Bilateral airspace disease suggestive of pneumonia versus pulmonary edema. Slight cardiomegaly. Abdomen X-Ray 08/19/24 06:23 IMPRESSION: Slightly dilated small bowel loops. Obstruction versus ileus cannot be excluded. Follow-up advised. Chest X-Ray 08/19/24 06:26 IMPRESSION: Bilateral airspace disease suggestive of pneumonia and less likely pulmonary edema. Follow-up to resolution advised. Head CT 08/19/24 07:48 IMPRESSION: No acute intracranial findings. Cervical Spine CT 08/19/24 08:02 IMPRESSION: No acute osseous abnormality cervical spine. Multilevel degenerative disc disease. Chest/Abdomen/Pelvis CTA 08/19/24 09:35 IMPRESSION: CHEST: 1. Bilateral pneumonia versus pulmonary edema. Atypical or viral pneumonia should be considered. 2. No evidence of aneurysm or dissection. No pulmonary embolism. ABDOMEN/PELVIS: 1. No evidence of aneurysm or dissection. 2. Slightly thickened wall of the colon which may indicate colitis. 3. Underfilled urinary bladder with thickened wall. Further evaluation advised. 4. Fat infiltration of the liver. Hospitalist [facility] Advance Care Plan I have confirmed that the patient's Advanced Care Plan is present, code status is documented, or surrogate decision maker is listed in patient medical record.: Yes Medication Reconciliation The patient is not eligible for med reconciliation; the patient is in a emergent medical situation where delaying treatment would jeopardize the patients health.: Yes
[2024-08-19] MEDS: SODIUM BICARBONATE 8.4% 150 MEQ in WATER, STERILE FOR INJECTION 950 ML IV CONT (05:20)
--- NOTE | 2024-08-19 05:51 | P.PCNBED_ITS ---
Procedures Central Line Placement Left Femoral: Central Line Date: 08/19/24 Central Line Time: 05:10 Discussed w/ the patient/family/POA,the placement of a central venous catheter, including its clinical necessity/indication & associated potential risks, benifits and alternatives.: Yes The patient/family/POA understand(s) and acknowledge(s) the need to proceed with central venous catheter insertion as an important element of the patient's clinical management.: Yes Consent: I have discussed with the patient and/or surrogate, the non-emergent placement of a central venous catheter, including its clinical necessity/indication and associated potential risks and complications. The patient and/or surrogate understand(s) and acknowledge(s) the need to proceed with central venous catheter insertion as an important element of the patient's clinical management. Time Out Performed: Yes Patient Position: trendelenburg Patient placed on monitor/pulse ox: Yes Provider Prep: mask, sterile gown, sterile gloves, Max. sterile barrier precautions, cap and hand hygiene with conventional soap/water or alcohol based hand rub Central line prep: 2% Chlorhexidine scrub Sterile US Technique with sterile gel/sterile probe covers: Yes Central line lumen inserted: triple [place]ic: 7 Length (cm): 16 Depth of Insertion (cm): 14 Post Procedure: sutured in place, good blood return, all ports aspirated, flushed, capped, transparent dressing, hemostatic product, antimicrobial product, securement product and aseptic technique maintained throughout procedure Patient tolerated procedure: no complications Arterial Line Size (Gauge): 20
--- NOTE | 2024-08-19 06:52 | PC.NURSE ---
Poultry Raiser at bedside, and son have left, will call when a half-way is chosen.
--- NOTE | 2024-08-19 14:38 | PC.NURSE ---
spoke to , who declared [facility] in [place] still awaiting release by [facility]
--- NOTE | 2024-08-19 21:15 | PC.NURSE ---
left message with [facility] about family desiring to use their service
--- NOTE | 2024-08-20 02:42 | PC.NURSE ---
spoke with [facility] to inform them of famliys desire to use their services
== END 2024-08-19 09:00 | disposition expired ==
PROVIDERS: Emergency Provider Student in an Organized Health Care Education/Training Program
DX: I21.4 Non-ST elevation (NSTEMI) myocardial infarction (principal); F10.229 Alcohol dependence with intoxication, unspecified; Y90.6 Blood alcohol level of 120-199 mg/100 ml; R74.01 Elevation of levels of liver transaminase levels; E11.65 Type 2 diabetes mellitus with hyperglycemia; J69.0 Pneumonitis due to inhalation of food and vomit; I46.9 Cardiac arrest, cause unspecified; R91.8 Other nonspecific abnormal finding of lung field; Z99.11 Dependence on respirator [ventilator] status; Z11.59 Encounter for screening for other viral diseases; J96.01 Acute respiratory failure with hypoxia; J96.02 Acute respiratory failure with hypercapnia; R57.9 Shock, unspecified; Z87.891 Personal history of nicotine dependence
CPT/HCPCS: 31500; 36415; 36600; 70450; 71045; 71275; 72125; 74174; 80053; 80143; 80179; 80307; 81001; 82010; 82077; 82140; 82375; 82550; 82805; 82948; 83036; 83050; 83605; 83735; 83880; 84100; 84145; 84439; 84443; 84481; 84484; 85018; 85025; 85610; 85730; 87040; 87637; 92950; 93005; 96361; 96365; 96366; 96367; 96375; 96376; 99291; C1751; J0171; J0461; J0692; J1265; J2250; J2310; J2405; J7030; Q9967